=== PATIENT | female | born 1975 | race African-American/Black ===

== ENCOUNTER 2017-03-18 17:52 | Emergency (ER) | payer BC ==
[~2017-03-18] VITALS: Ht 152.4 cm; Wt 94.8 kg
--- NOTE | ~2017-03-18 | EKG ---
[place] [address] [employer] 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: NING : 1975 Requested By: David Sumner Order Number: [id number] MD: Rajendra Ashford Measurements Intervals [place] Rate: 109 P: 27 CO: 143 QRS: 17 QRSD: 73 T: 7 QT: 316 QTc: 426 Interpretive Statements Sinus tachycardia Poor R wave progression No previous ECG available for comparison Electronically Signed On 03-19-2017 9:03:05 [employer] by Rajendra Ashford [email or web address] <ELECTRONICALLY SIGNED> By: Rajendra Ashford MD, [facility] 03/19/17 0903 [id number] 175 Rajendra Ashford MD, FACC /EPI
[~2017-03-18 17:52] MED LIST: ARICEPT 5 MG TAB5 MG PO; ATROPINE; BISACODYL SUPP10 MG RECTAL; BYETTA; CELEXA; CENTRUM SILVER1 EAC4 PO; DIABETA; DIFLUCAN150 MG PO; FARXIGA10 MG PO; FIORICET 50-321 EACH PO; FLEXERIL PO; IRON325 PO; JANUMET 50-1,01 EACH; LANTUS SUBQ; LANTUS100 UNIT/M SUBQ; LASIX 20 MG TAB20 MG PO; LISINOPRIL10 MG PO; METFORMIN HCL500 MG PO; NON-ASPIRIN PA325 MG PO; PEPCID20 MG PO; PHENERGAN 25 MG25 M1 PO; SERTRALINE HCL50 MG PO; TUMS PO
[2017-03-18] MEDS ORDERED: SPIRONOLACTONE25 MG PO (18:07)
[2017-03-18 18:20] LABS: HEMATOCRIT 35.2 % (37.0-47.0); HEMOGLOBIN 11.3 gm/dL (12.0-15.0); MCH 22.5 pg (26.0-34.0); MCV 70.2 fL (80.0-100.0); RBC 5.02 mil/uL (4.20-5.00); RDW 14.2 % (10.5-14.5); WBC 8.2 thou/uL (4.0-11.0)
[2017-03-18 18:28] LABS: ANION GAP 9 mmol/L (7-16); BUN 17 mg/dL (7-18); CALCIUM 9.3 mg/dL (8.5-10.1); CHLORIDE 102 mmol/L (98-107); CO2 24 mmol/L (21-32); GLUCOSE 214 mg/dL (74-106); POTASSIUM 4.1 mmol/L (3.5-5.1); SODIUM 135 mmol/L (136-145)
[2017-03-18 18:37] LABS: ALBUMIN 3.5 g/dL (3.4-5.0); MAGNESIUM 1.9 mg/dL (1.8-2.4); SGOT 16 U/L (15-37); SGPT 27 U/L (30-65); TOTAL BILIRUBIN 0.3 mg/dL (<0.1-1.0); TROPONIN-I < 0.04 ng/mL (<0.06)
[2017-03-18 20:36] VITALS: BP 133/83
== END 2017-03-18 20:40 | disposition home or self-care (01) ==
LOC: ER 17:52
PROVIDERS: Emergency Medicine
DX: R07.9 Chest pain, unspecified (principal); E11.9 Type 2 diabetes mellitus without complications; I10 Essential (primary) hypertension; G43.909 Migraine, unspecified, not intractable, without status migrainosus